=== PATIENT | female | born 1990 | race Caucasian/White ===

== ENCOUNTER 2017-02-17 22:41 | Emergency (ER) | payer SELFPAY ==
[2017-02-18] MEDS ORDERED: IBUPROFEN 800 MG TAB ONE (00:21)
== END 2017-02-18 00:24 | disposition home or self-care (01) ==
LOC: EDH 22:41
DX: K08.89 Other specified disorders of teeth and supporting structures (principal)
CPT/HCPCS: 81025

== ENCOUNTER 2017-07-27 11:44 | Emergency (ER) | payer OTHER ==
[2017-07-27 12:41] LABS: BASOPHILS % (AUTO) 0.3 % (0.0-5.0); HEMATOCRIT 40.2 % (36-48); LYMPHOCYTES % (AUTO) 27.5 % (21.0-51.0); MEAN CORPUSCULAR HEMOGLOBIN 27.2 pg (27.0-33.0); MEAN CORPUSCULAR HGB CONC 33.9 g/dL (32.0-36.0); MEAN CORPUSCULAR VOLUME 80.4 fL (79-99); MONOCYTES % (AUTO) 6.2 % (3.0-13.0); PLATELET COUNT (AUTO) 274 K/uL (130-400); RED BLOOD CELL COUNT(AUTO) 4.99 MIL/uL (4.00-5.50); WHITE BLOOD COUNT (AUTO) 7.9 K/uL (4.8-10.8)
[2017-07-27 12:50] LABS: CREATININE 0.7 mg/dL (0.5-1.5); POTASSIUM 4.3 mmol/L (3.5-5.1)
== END 2017-07-27 13:02 | disposition home or self-care (01) ==
LOC: EDH 11:44
DX: R20.2 Paresthesia of skin (principal)
CPT/HCPCS: 36415; 80048; 85025

== ENCOUNTER 2019-11-01 06:20 | Emergency (ER) | payer SELFPAY ==
[2019-11-01] MEDS ORDERED: ONDANSETRON HCL 4 MG/2 ML VIAL ONE (06:45)
[2019-11-01] MEDS ORDERED: KETOROLAC TROMETHAMINE 30MG/ML ONE (06:45)
[2019-11-01 06:48] LABS: BASOPHILS % (AUTO) 0.1 % (0.0-5.0); EOSINOPHILS % (AUTO) 0.3 % (0.0-8.0); HEMATOCRIT 39.3 % (36-48); LYMPHOCYTES % (AUTO) 14.5 % (21.0-51.0); MEAN CORPUSCULAR HEMOGLOBIN 28.1 pg (27.0-33.0); MEAN CORPUSCULAR HGB CONC 33.8 g/dL (32.0-36.0); MEAN CORPUSCULAR VOLUME 83.1 fL (79-99); MONOCYTES % (AUTO) 7.1 % (3.0-13.0); NEUTROPHILS % (AUTO) 77.9 % (40.0-77.0); PLATELET COUNT (AUTO) 181 K/uL (130-400); RED BLOOD CELL COUNT(AUTO) 4.73 MIL/uL (4.00-5.50); WHITE BLOOD COUNT (AUTO) 7.7 K/uL (4.8-10.8)
[2019-11-01 06:52] LABS: APPEARANCE,URINE CLOUDY (CLEAR); BILIRUBIN,URINE NEGATIVE (NEGATIVE); COLOR,URINE YELLOW (YELLOW); GLUCOSE, URINE (UA) NEGATIVE (NEGATIVE); KETONES,URINE 5 mg/dL (NEGATIVE); LEUKOCYTE ESTERASE ,URINE NEGATIVE (NEGATIVE); NITRATE,URINE NEGATIVE (NEGATIVE); OCCULT BLOOD,URINE SMALL (NEGATIVE); PH,URINE 5.5 (5.0-8.0); PROTEIN,URINE TRACE mg/dL (NEGATIVE); UROBILINOGEN,URINE 0.2 mg/dL (0.2-1.0)
[2019-11-01 07:03] LABS: BACTERIA,URINE Moderate /HPF (None Seen); MUCUS,URINE Few LPF (None Seen); RBC,URINE 0-1 /HPF (0-1); SQUAMOUS EPITHELIAL CELL,UR Moderate /HPF (0-2)
[2019-11-01 07:04] LABS: ALBUMIN 3.4 g/dL (3.5-5.0); BILIRUBIN,TOTAL 0.4 mg/dL (0.2-1.0); CREATININE 0.9 mg/dL (0.5-1.5); POTASSIUM 3.7 mmol/L (3.5-5.1); TOTAL PROTEIN, SERUM 7.8 g/dL (6.0-8.3)
[2019-11-01] MEDS ORDERED: CEFTRIAXONE SODIUM 1 GM ONE (07:21)
[2019-11-01] MEDS ORDERED: SODIUM CHLORIDE 0.9% 50 ML IV ONE (07:22)
[2019-11-01] MEDS ORDERED: MORPHINE SULFATE 4 MG/1ML SYG ONE (08:00)
== END 2019-11-01 09:18 | disposition home or self-care (01) ==
LOC: EDH 06:20
DX: K52.9 Noninfective gastroenteritis and colitis, unspecified (principal); K80.20 Calculus of gallbladder without cholecystitis without obstruction; N39.0 Urinary tract infection, site not specified
CPT/HCPCS: 36415; 74176; 80053; 81001; 81025; 83690; 85025; 87088; 96361; 96374; 96375; 99284; J0696; J1885; J2270; J2405; J7030